=== PATIENT | male | born 1950 | race Caucasian/White ===

== ENCOUNTER → 2016-11-07 | Outpatient (CLI) | payer OTHER | LOC: FIMAGING 09:01 | PROVIDERS: ATTEND Family Medicine | DX: Z13.6 Encounter for screening for cardiovascular disorders (principal); E78.2 Mixed hyperlipidemia; I10 Essential (primary) hypertension ==

== ENCOUNTER 2017-03-23 10:16 | Emergency (ER) | payer OTHER ==
[2017-03-23 10:25] VITALS: TEMP 97.9
[2017-03-23] MEDS ORDERED: LORazepam 2 MG/ML INJ IVP ONE (10:55)
[2017-03-23] MEDS ORDERED: NS 500 ML IV ONE (10:55)
--- NOTE | 2017-03-23 11:00 | EDPHY ---
H & P Time Seen by Provider: 03/23/17 10:57 HPI/ROS: HPI: Mr. Mccord is a 66 yrs, male who presents with Chief Complaint: Left arm insect bite Location: Left arm Quality: Insect bite Duration: 3 weeks Signs and Symptoms: Positive pruritus, positive red, no warmth, no tenderness, no radiation, no weakness, no joint pain, no muscle aches, positive lightheadedness this morning and for the last several days, + left-sided chest pressure starting today, no fever Timing: Severity: Context: Patient has a history of hypertension presents today with insect bite on his left forearm that occurred 3 weeks ago that is not improving despite taking Benadryl for the last 3 days every 4 hours. Benadryl has helped his pruritus symptoms. Now has a scab at the bite area. For the last several days while waking up in the morning patient has experienced some lightheadedness; denies vertigo; denies headache; denies nasal congestion. Also reports some left-sided chest pressure today nonradiating described as 2/10; reproducible with palpation. No prior cardiac history. Patient is that he is worried about his insect bite. He presumed was a spider but never saw the insect actually bit him. Has not been hiking or outdoors in the last 4 weeks. Modifying Factors: Call primary care provider who advised over the phone to go to the ER Comment: ROS: Eyes: No blurred vision Respiratory: No shortness of breath, no cough Cardiovascular: No chest pain Gastrointestinal: No nausea, no vomiting no diarrhea Genitourinary: No dysuria Extremities: No myalgias Neurologic: No weakness, no numbness Skin: No rashes Hematologic: No bruising, no bleeding MEDICAL/SURGICAL HISTORY: Hypertension. No lung disease. No HIV/aids. Social History: Retired. Never smoked. Smoking Status: Never smoked Physical Exam: CONSTITUTIONAL: Extremely well-appearing elderly white male who appears younger than stated age, awake and alert, no obvious distress HEENT: Atraumatic and normocephalic, PERRL, EOMI. Tympanic membranes clear. Oropharynx clear, no exudate and moist pink mucosa. Airway patent. No lymphadenopathy. No meningismus. Cardiovascular: Normal S1/S2, regular rate, regular rhythm, without murmur rub or gallop. PULMONARY/CHEST: Symmetrical and nontender. Clear to auscultation bilaterally Good air movement. No accessory muscle usage. ABDOMEN: Soft, nondistended, nontender, no rebound, no guarding, no peritoneal signs, no masses or organomegaly. No CVAT. EXTREMITIES: 2/2 pulses, no deformities, no clubbing, no cyanosis or edema. NEUROLOGICAL: no focal neuro deficits. GCS 15. No dizziness reproduced with Ashely maneuver. SKIN: Warm and dry, 4 inch annular macular area on the left posterior forearm; with a small pinpoint scabbed area in the center; no warmth; no discharge. Good capillary refill. Constitutional: Initial Vital Signs Temperature (C) 36.6 C 03/23/17 10:23 Heart Rate 69 03/23/17 10:23 Respiratory Rate 17 03/23/17 10:23 Blood Pressure 155/89 H 03/23/17 10:23 O2 Sat (%) 97 03/23/17 10:23 O2 Delivery Mode Room Air Allergies/Adverse Reactions: amoxicillin Allergy (Verified 03/23/17 10:23) Home Medications: Medication Instructions Recorded LISINOPRIL 05/18/09 Nasonex 05/18/09 Cephalexin [Keflex (*)] 500 mg PO TID #21 cap 03/23/17 Triamcinolone 0.1% [Triamcinolone 1 radha TP TID #0 cream 03/23/17 0.1% Cream] Medical Decision Making - Diagnostics EKG Interpretation: 12 lead EKG: Indication: chest pain Rhythm: Normal sinus rhythm [place]: Normal Intervals: Normal QRS: Normal ST segments: Normal INTERPRETATION: Normal EKG The 12 lead EKG was interpreted by myself. Imaging Results: Imaging Impressions Chest X-Ray 03/23/17 10:56 Impression: No acute pulmonary disease. ED Course/Re-evaluation: EKG, chest x-ray, labs, medications ordered. Area of concern does not show any signs of cellulitis, abscess, necrosis. We will do a typical chest pain workup; SANDOR risk index is low for ACS. Suspect anxiety component. Amoxicillin allergies causes joint swelling; will give Keflex to prevent secondary infection D-dimer normal; no indication for for CT scan and no pulmonary embolism Patient incidentally noticed this chest pressure; 1st troponin and EKG did not show any acute ischemic changes I offered patient admission but he adamantly declined knowing the risk of acute coronary syndrome and sudden cardiac . Patient reports that he has a follow-up appointment 2 days with his primary are ready advised to follow up with Cardiology outpatient. He was instructed that he should return to the ER if any worsening of symptoms chest pressure shortness of breath. Differential Diagnosis: Chest pain including but not limited to myocardial ischemia, pulmonary embolus, chest wall pain, pleural inflammation and pulmonary infectious causes. - Data Points Laboratory Results: Laboratory Results 03/23/17 11:45 03/23/17 11:45 03/23/17 03/23/17 03/23/17 11:45 11:45 11:45 WBC 4.53 10^3/uL 10^3/uL (3.80-9.50) RBC 4.72 10^6/uL 10^6/uL (4.40-6.38) Hgb 15.1 g/dL g/dL (13.7-17.5) Hct 43.3 % % (40.0-51.0) MCV 91.7 fL fL (81.5-99.8) MCH 32.0 pg pg (27.9-34.1) MCHC 34.9 g/dL g/dL (32.4-36.7) RDW 12.5 % % (11.5-15.2) Plt Count 165 10^3/uL 10^3/uL (150-400) MPV 11.2 fL fL (8.7-11.7) Neut % (Auto) 51.9 % % (39.3-74.2) Lymph % (Auto) 34.9 % % (15.0-45.0) [place] % (Auto) 8.8 % % (4.5-13.0) Eos % (Auto) 3.1 % % (0.6-7.6) Baso % (Auto) 0.9 % % (0.3-1.7) Nucleat RBC Rel Count 0.0 % % (0.0-0.2) Absolute Neuts (auto) 2.35 10^3/uL 10^3/uL (1.70-6.50) Absolute Lymphs (auto) 1.58 10^3/uL 10^3/uL (1.00-3.00) Absolute Monos (auto) 0.40 10^3/uL 10^3/uL (0.30-0.80) Absolute Eos (auto) 0.14 10^3/uL 10^3/uL (0.03-0.40) Absolute Basos (auto) 0.04 10^3/uL 10^3/uL (0.02-0.10) Absolute Nucleated RBC 0.00 10^3/uL 10^3/uL (0-0.01) Immature Gran % 0.4 % % (0.0-1.1) Immature Gran # 0.02 10^3/uL 10^3/uL (0.00-0.10) D-Dimer < 0.27 ug/mLFEU ug/mLFEU (0.00-0.50) Sodium 141 mEq/L mEq/L (134-144) Potassium 4.3 mEq/L mEq/L (3.5-5.2) Chloride 105 mEq/L mEq/L (97-110) Carbon Dioxide 26 mEq/l mEq/l (22-31) Anion Gap 10 mEq/L mEq/L (8-16) BUN 12 mg/dL mg/dL (7-23) Creatinine 0.9 mg/dL mg/dL (0.7-1.3) Estimated GFR > 60 Glucose 116 mg/dL H mg/dL (70-100) Calcium 9.4 mg/dL mg/dL (8.5-10.4) Troponin I < 0.012 ng/mL ng/mL (0.000-0.034) NT-Pro-B Natriuret Pep 64 pg/mL pg/mL (0-125) Medications Given: Discontinued Medications Sodium Chloride (Ns) 500 mls @ 1,000 mls/hr IV EDNOW ONE PRN Reason: Protocol Stop: 03/23/17 11:24 Last Admin: 03/23/17 11:53 Dose: 500 mls Lorazepam (Ativan Injection) 0.5 mg IVP EDNOW ONE Stop: 03/23/17 10:56 Last Admin: 03/23/17 11:53 Dose: 0.5 mg Departure - Departure Disposition: Home, Routine, Self-Care Clinical Impression: Dermatitis, Atypical chest pain Insect bite Qualifiers: Encounter type: initial encounter Qualified Code(s): W57.XXXA - Bitten or stung by nonvenomous insect and other nonvenomous arthropods, initial encounter Condition: Good Instructions: Insect Bite or Sting (ED) Referrals: Ruy Russo [Primary Care Provider] - 2-3 days without fail David Castellon MD [Medical Doctor] - 5-7 days, call for appt. Prescriptions: Cephalexin [Keflex (*)] 500 mg PO TID #21 cap Triamcinolone 0.1% [Triamcinolone 0.1% Cream] 1 radha TP TID #0 cream
[2017-03-23 11:54] LABS: % IMMATURE GRANULYOCYTES 0.4 % (0.0-1.1); ABSOLUTE IMMATURE GRANULOCYTES 0.02 10^3/uL (0.00-0.10); ADD DIFF? NO; ADD MORPH? NO; ADD SCAN? NO; ATYPICAL LYMPHOCYTE FLAG 0 (0-99); FRAGMENT RBC FLAG 0 (0-99); HEMATOCRIT 43.3 % (40.0-51.0); HEMOGLOBIN 15.1 g/dL (13.7-17.5); LEFT SHIFT FLG 0 (0-99); LIPEMIA HEMOLYSIS FLAG 90 (0-99); MEAN CELL HEMOGLOBIN CONCENTR. 34.9 g/dL (32.4-36.7); MEAN CELL VOLUME 91.7 fL (81.5-99.8); MEAN PLATELET VOLUME 11.2 fL (8.7-11.7); PLATELET CLUMPS FLAG 0 (0-99); PLATELET COUNT 165 10^3/uL (150-400); RED BLOOD CELL COUNT 4.72 10^6/uL (4.40-6.38); RED CELL DISTRIBUTION WIDTH 12.5 % (11.5-15.2)
[2017-03-23 12:03] LABS: ANION GAP 10 mEq/L (8-16); CALCIUM 9.4 mg/dL (8.5-10.4); CARBON DIOXIDE 26 mEq/l (22-31); CHLORIDE 105 mEq/L (97-110); CREATININE 0.9 mg/dL (0.7-1.3); GLOMERULAR FILTRATION RATE > 60; GLUCOSE 116 mg/dL (70-100); POTASSIUM 4.3 mEq/L (3.5-5.2); SODIUM 141 mEq/L (134-144)
--- NOTE | 2017-03-23 12:03 | CPEKG ---
Heart Rate: 58 RR Interval: 1034 P-R Interval: 200 QRSD Interval: 100 QT Interval: 404 QTC Interval: 397 P [place]: 55 QRS [place]: 25 T Wave [place]: 13 EKG Severity - NORMAL ECG - EKG Impression: SINUS RHYTHM Electronically Signed By: Renee Watkins 23-Mar-2017 15:26:40
[2017-03-23 12:15] LABS: TROPONIN I < 0.012 ng/mL (0.000-0.034)
[2017-03-23 13:31] VITALS: BP 139/90; PULSE 65; RESP 16; O2SAT 96
== END 2017-03-23 13:31 | disposition home or self-care (01) ==
DX: S50.862A Insect bite (nonvenomous) of left forearm, initial encounter (principal); L30.9 Dermatitis, unspecified; R07.89 Other chest pain; E86.9 Volume depletion, unspecified; W57.XXXA Bitten or stung by nonvenomous insect and other nonvenomous arthropods, initial encounter
CPT/HCPCS: 71020; 93005; 96374; 99285; J2060